=== PATIENT | female | born 1980 | race Caucasian/White ===

== ENCOUNTER 2022-10-28 15:28 | Emergency (ER) | payer OTHER, MEDICAID ==
[~2022-10-28] VITALS: Ht 167.6 cm; Wt 145.4 kg
[2022-10-28] MEDS ORDERED: NS 1,000 ML IV ONE (17:50)
[2022-10-28] MEDS ORDERED: MORPHINE 4 MG/ML 1ML VIAL IV ONE (18:00)
[2022-10-28] MEDS ORDERED: ONDANSETRON 4MG 2ML VIAL IV ONE (18:00)
[2022-10-28 18:10] LABS: BASO # 0.1 10^3/uL (0.0-0.2); BASO % 0.5 % (0.0-1.0); EOS # 0.2 10^3/uL (0.0-0.5); EOS % 1.3 % (0.0-3.0); HEMATOCRIT 41.3 % (36.0-47.0); HEMOGLOBIN 13.8 g/dl (12.0-15.5); LYMPH # 1.6 10^3/uL (1.5-5.0); LYMPH % 10.4 % (24.0-44.0); MEAN CORPUSCULAR HEMOGLOBIN 28.2 pg (27.0-33.0); MEAN CORPUSCULAR HGB CONC 33.4 g/dl (32.0-36.5); MEAN CORPUSCULAR VOLUME 84.3 fl (80.0-96.0); MONO # 0.7 10^3/uL (0.0-0.8); MONO % 4.4 % (2.0-8.0); NEUTROPHILS # 12.4 10^3/uL (1.5-8.5); NEUTROPHILS % 82.9 % (36.0-66.0); PLATELET COUNT, AUTOMATED 271 10^3/uL (150-450)
[2022-10-28] MEDS ORDERED: ISOVUE-370 76% 100ML VIAL As Ordered ONE (18:21)
[2022-10-28 18:35] LABS: ALBUMIN 3.3 G/DL (3.2-5.2); BILIRUBIN,DIRECT 0.2 MG/DL (<0.4); BILIRUBIN,TOTAL 0.6 MG/DL (0.3-1.2); TOTAL PROTEIN 6.8 G/DL (5.7-8.2)
[2022-10-28] MEDS ORDERED: IBUP80TA PO (19:41)
[2022-10-28] MEDS ORDERED: METH-1165 PO (19:41)
[2022-10-28 19:45] VITALS: BP 137/83; TEMP 98.9; O2SAT 96
== END 2022-10-28 20:06 | disposition home or self-care (01) ==
LOC: EDBD 15:28 → M ED 15:28
DX: S80.11XA Contusion of right lower leg, initial encounter (principal); R10.9 Unspecified abdominal pain; K76.0 Fatty (change of) liver, not elsewhere classified; V49.50XA Passenger injured in collision with unspecified motor vehicles in traffic accident, initial encounter; Z88.0 Allergy status to penicillin; Z79.1 Long term (current) use of non-steroidal anti-inflammatories (NSAID); Z79.899 Other long term (current) drug therapy
CPT/HCPCS: 71260; 73020; 73080; 73110; 73130; 73552; 73590; 74177; 80047; 80076; 83690; 84702; 85025; 93005; 96374; 96375; 99284; J2405; Q9967